=== PATIENT | male | born 1990 | race American Indian/Alaskan Native ===

== ENCOUNTER 2017-09-22 23:28 | Emergency (ER) | payer OTHER ==
[2017-09-23 05:04] LABS: Bilirubin,Urine NEG (Negative); Blood,Urine NEG (Negative); Ketones,Urine TR mg/dL (Negative); Leukocyte Esterase,Urine NEG (Negative); Mucus,Urine FEW /HPF; Nitrite,Urine NEG (Negative); Protein,Urine <15 mg/dL mg/dL (Negative)
[2017-09-23] MEDS ORDERED: XYLOCAINE 1% MPF 5 mL INFILTRATI ONE (06:28)
[2017-09-23] MEDS ORDERED: ZITHROMAX PO ONE (06:28)
[2017-09-23] MEDS ORDERED: ROCEPHIN IM ONE (06:28)
--- NOTE | 2017-09-23 06:33 | Emergency Department Report ---
ED Male HPI - General Chief complaint: Urogenital-Male Stated complaint: POSSIBLE POSITIVE STD Time Seen by Provider: 09/23/17 06:28 Source: patient Mode of arrival: Ambulatory Limitations: No Limitations - History of Present Illness Initial comments: 27-year-old male past medical history Chlamydia/urethritis in the past presents with complaint of exposure to chlamydia. Patient states that within the last 2 days he was told by a female sex partner that she tested positive for chlamydia and was treated for clinically. Patient states he would like to be tested and treated. Patient states he has had some dysuria and a few episodes of yellowish whitish penile discharge. States that he has burning sensation with urination. Denies any rash denies testicle or penile swelling denies fevers or chills denies abdominal pain. MD Complaint: penile discharge, dysuria Onset/Timin -: days(s) Location: penis Severity: mild Worsens with: urination discharge (yellowish whitish discharge) - Related Data Home Medications Medication Instructions Recorded Confirmed Last Taken No Known Home Medications [No 09/23/17 09/23/17 Unknown Reported Home Medications] Allergies Allergy/AdvReac Type Severity Reaction Status Date / Time No Known Allergies Allergy Unverified 09/23/17 01:05 ED Review of Systems ROS: Stated complaint: POSSIBLE POSITIVE STD Other details as noted in HPI Constitutional: denies: chills, fever Eyes: denies: eye pain, eye discharge, vision change ENT: denies: ear pain, throat pain Respiratory: denies: cough, shortness of breath, wheezing Cardiovascular: denies: chest pain, palpitations Endocrine: no symptoms reported Gastrointestinal: denies: abdominal pain, nausea, diarrhea Genitourinary: discharge (yellowish whitish discharge). denies: urgency, dysuria Musculoskeletal: denies: back pain, joint swelling, arthralgia Skin: denies: rash, lesions Neurological: denies: headache, weakness, paresthesias Psychiatric: denies: anxiety, depression Hematological/Lymphatic: denies: easy bleeding, easy bruising ED Past Medical Hx - Past Medical History Previous Medical History?: No - Surgical History Past Surgical History?: No - Social History Smoking Status: Never Smoker Substance Use Type: None - Medications Home Medications: Home Medications Medication Instructions Recorded Confirmed Last Taken Type No Known Home Medications [No 09/23/17 09/23/17 Unknown History Reported Home Medications] ED Physical Exam - General Limitations: No Limitations General appearance: alert, in no apparent distress - Head Head exam: Present: atraumatic, normocephalic - Eye Eye exam: Present: normal appearance, PERRL, EOMI - ENT ENT exam: Present: mucous membranes moist - Neck Neck exam: Present: normal inspection - Respiratory Respiratory exam: Present: normal lung sounds bilaterally. Absent: respiratory distress - Cardiovascular Cardiovascular Exam: Present: regular rate, normal rhythm. Absent: systolic murmur, diastolic murmur, rubs, gallop - GI/Abdominal GI/Abdominal exam: Present: soft, normal bowel sounds - Rectal Rectal exam: Present: deferred - exam: Present: urethral discharge (yellowish whitish discharge from urethra) - Extremities Exam Extremities exam: Present: normal inspection - Back Exam Back exam: Present: normal inspection - Neurological Exam Neurological exam: Present: alert, oriented X3 - Psychiatric Psychiatric exam: Present: normal affect, normal mood - Skin Skin exam: Present: warm, dry, intact, normal color. Absent: rash ED Course Vital Signs 09/23/17 00:59 Temperature 97.5 F L Pulse Rate 70 Blood Pressure 110/75 O2 Sat by Pulse 100 Oximetry ED Medical Decision Making - Medical Decision Making A/P: Possible chlamydial Urethritis 1-patient empirically treated with azithromycin and ceftriaxone based on exposure 2-GC cultures sent 3-patient given follow-up with primary care Critical care attestation.: If time is entered above; I have spent that time in minutes in the direct care of this critically ill patient, excluding procedure time. ED Disposition Clinical Impression: Urethritis Disposition: - TO HOME OR SELFCARE Is pt being admited?: No Does the pt Need Aspirin: No Condition: Stable Instructions: Nonspecific Urethritis in Men (ED), Chlamydia Infection (ED) Referrals: [facility] [Outside] - 3-5 Days [facility] [Outside] - 3-5 Days Forms: STI Treatment and Prevention, Work/School Release Form(ED) Time of Disposition: 06:32
[2017-09-23 07:17] VITALS: BP 134/79
== END 2017-09-23 07:16 | disposition home or self-care (01) ==
LOC: ED 23:28
DX: N34.2 Other urethritis (principal)
CPT/HCPCS: 81001; 87591; 96372; 99283; J0696